=== PATIENT | female | born 1985 | race Caucasian/White ===

== ENCOUNTER 2020-07-06 14:02 | Emergency (ER) | payer OTHER, SELFPAY ==
[2020-07-06] VITALS (18 sets, daily range): BP systolic 104–141; BP diastolic 51–84; PULSE 55–87; RESP 13–22; O2SAT 99–100
--- NOTE | 2020-07-06 14:16 | ECG_ITS ---
Measurements Intervals [place] Rate: 54 P: 18 VT: 144 QRS: 51 QRSD: 85 T: 41 QT: 403 QTc: 383 Interpretive Statements SINUS BRADYCARDIA WITH SINUS ARRHYTHMIA BASELINE ARTIFACT- II, III, AVF, V3, V5 BORDERLINE ECG Electronically Signed On 07-06-2020 14:55:08 [facility]OC[facility] by Vu Johnson D.O.
[2020-07-06 14:38] LABS: Basophils Percent Auto 0.5 % (0.2-1.2); Eosinophils Absolute Auto 0.2 K/mm3 (0-0.3); Eosinophils Percent Auto 2.3 % (0-4.4); Hematocrit 39.9 % (37.0-47.0); Hemoglobin 13.1 g/dL (12.0-15.0); Immature Granulocyte Absolute 0.02 K/mm3 (0.00-0.031); Immature Granulocyte Percent A 0.2 % (0-0.5); Lymphocytes Absolute Auto 2.38 K/mm3 (0.9-3.2); Lymphocytes Percent Auto 27.8 % (18.3-44.2); Mean Corpuscular HGB Conc 32.8 g/dl (32-36); Mean Corpuscular Hemoglobin 31.5 pg (26-34); Mean Corpuscular Volume 95.9 fl (80-100); Mean Platelet Volume 11.6 fl (7.4-10.4); Monocytes Absolute Auto 0.7 K/mm3 (0.1-0.6); Monocytes Percent Auto 8.6 % (2.6-8.5); Neutrophils Absolute Auto 5.2 K/mm3 (1.3-6.7); Neutrophils Percent Auto 60.6 % (45.5-73.1); Platelet Count Result 210 k/mm3 (150-375); Red Blood Count 4.16 M/mm3 (4.2-5.4); Red Cell Distribution Width 12.4 % (11.5-14.5); White Blood Count 8.6 K/mm3 (4.5-10.0)
--- NOTE | 2020-07-06 14:40 | ED.GENADULT ---
HPI - General Adult General Chief complaint: Syncope Stated complaint: syncopal Time Seen by Provider: 07/06/20 14:05 History of Present Illness HPI narrative: Patient is a 34-year-old female who presents ER after syncopal episode. Patient was at [facility] having blood drawn for hormone levels for irregular vaginal bleeding when she lost consciousness. This has happened to her previously. No fevers or chills or sweats. No burning urination. Reports she should not be . No injury from the episode. Related Data Allergies Allergy/AdvReac Type Severity Reaction Status Date / Time No Known Allergies Allergy Unverified 02/25/15 20:22 Review of Systems Constitutional: Constitutional: Denies chills, Denies fever(s) and Denies weakness Gastrointestinal: Gastrointestinal: Denies abdominal pain, Denies nausea and Denies vomiting Genitourinary: Genitourinary: Reports abnormal vaginal bleeding, Denies nocturia and Denies dysuria Neurologic: Reports syncope, Denies focal weakness and Denies numbness PMFSH Past Medical History Medical History (Updated 07/06/20 @ 16:52 by Pollo Kearns MD) Healthy female adult Surgical History Surgical History (Updated 07/06/20 @ 16:50 by Pollo Kearns MD) No pertinent past surgical history Social History Social History (Updated 07/06/20 @ 16:51 by Pollo Kearns MD) Smoking status: Never smoker Gender identity (if verbalized by the patient): Female Exam Narrative: Exam Narrative: GENERAL: Well-appearing, well-nourished, and in no acute distress. HEAD: Normocephalic, atraumatic. CHEST: Clear to auscultation. No respiratory distress. HEART: Regular rate and rhythm. Normal peripheral pulses. ABDOMEN: Soft, nontender, nondistended. EXTREMITIES: Normal range of motion. No edema. NEURO: Alert and oriented x3. PSYCH: Normal mood and affect. Course Course Emergency Course: Patient feels well. Discharge home. Vital Signs Vital signs: Vital Signs Pulse Rate 64 07/06/20 14:09 Respiratory Rate 15 07/06/20 14:09 Pulse Oximetry 100 07/06/20 14:09 Pulse Rate 73 07/06/20 15:48 Respiratory Rate 16 07/06/20 14:17 Blood Pressure 111/67 07/06/20 15:48 Pulse Oximetry 100 07/06/20 14:17 Medical Decision Making Vital Signs Vital Signs: Vital Signs Pulse Rate 64 07/06/20 14:09 Respiratory Rate 15 07/06/20 14:09 Pulse Oximetry 100 07/06/20 14:09 Pulse Rate 73 07/06/20 15:48 Respiratory Rate 16 07/06/20 14:17 Blood Pressure 111/67 07/06/20 15:48 Pulse Oximetry 07/06/20 14:17 Lab Data Result diagrams: 07/06/20 14:29 07/06/20 14:29 Labs: Lab Results 07/06/20 07/06/20 07/06/20 Range/Units 14:29 14:29 14:39 WBC 8.6 (4.5-10.0) K/mm3 RBC 4.16 L (4.2-5.4) M/mm3 Hgb 13.1 (12.0-15.0) g/dL Hct 39.9 (37.0-47.0) % MCV 95.9 (80-100) fl MCH 31.5 (26-34) pg MCHC 32.8 (32-36) g/dl RDW 12.4 (11.5-14.5) % Plt Count 210 (150-375) k/mm3 MPV 11.6 H (7.4-10.4) fl Immature Gran % (Auto) 0.2 (0-0.5) % Neut % (Auto) 60.6 (45.5-73.1) % Lymph % (Auto) 27.8 (18.3-44.2) % Miller % (Auto) 8.6 H (2.6-8.5) % Eos % (Auto) 2.3 (0-4.4) % Baso % (Auto) 0.5 (0.2-1.2) % Lymph # (Auto) 2.38 (0.9-3.2) K/mm3 Miller # (Auto) 0.7 H (0.1-0.6) K/mm3 Eos # (Auto) 0.2 (0-0.3) K/mm3 Baso # (Auto) 0.0 (0.0-0.1) K/mm3 Abs Immat Gran (auto) 0.02 (0.00-0.031) K/mm3 Absolute Neuts (auto) 5.2 (1.3-6.7) K/mm3 Absolute Nucleated RBC 0.0 (0.0-0.012) K/mm3 Nucleated RBC % 0.0 (0.0-0.2) % Sodium 139 (137-145) mmol/L Potassium 3.6 (3.4-5.0) mmol/L Chloride 108 H (98-107) mmol/L Carbon Dioxide 23 (22-30) mmol/L Anion Gap 8 (8-16) mmol/L BUN 15 (7-17) mg/dL Creatinine 0.80 (0.7-1.0) mg/dL Estim Creat Clear Calc Not Reportable Estimated GFR > 6
[2020-07-06 14:55] LABS: Anion Gap 8 mmol/L (8-16); Blood Urea Nitrogen 15 mg/dL (7-17); Carbon Dioxide 23 mmol/L (22-30); Chloride 108 mmol/L (98-107); Estimated Glomerular Filt Rate > 60; Glucose 94 mg/dL (65-105); Potassium 3.6 mmol/L (3.4-5.0); Sodium 139 mmol/L (137-145)
[2020-07-06 14:55] LABS: Add Urine Microscopic? YES; Appearance Urine Clear (Clear); Bacteria Urine Trace /hpf; Bilirubin Urine Negative (Negative); Blood Urine Negative (Negative); Color Urine Yellow (Yellow); Glucose Urine UA Negative (Negative); Ketones Urine Negative (Negative); Leukocyte Esterase Ur Negative LEU/UL (Negative); Mucus Urine Few /lpf; Nitrate Urine Negative (Negative); Protein Urine 1+ mg/dL (Negative); RBC Urine 0-2 /hpf (0-2); Specific Grav Ur 1.018 (1.001-1.035); Squamous Epithelial Cell Urine Many /hpf (Few); Urobilinogen Urine Negative mg/dL (<2.0); WBC Urine 0-3 /hpf
== END 2020-07-06 17:17 | disposition home or self-care (01) ==
PROVIDERS: Emergency Provider Emergency Medicine; PCP Family Medicine Adolescent Medicine
DX: R55 Syncope and collapse (principal); R00.1 Bradycardia, unspecified
CPT/HCPCS: 36415; 80048; 81001; 81025; 85025; 93005; 99283